=== PATIENT | male | born 1955 | race Caucasian/White ===

== ENCOUNTER 2017-12-24 12:42 | Emergency (ER) | payer OTHER ==
[~2017-12-24] VITALS: Ht 162.6 cm; Wt 84.4 kg
[~2017-12-24 12:42] MED LIST: CAMBIA50 MG PO; FOLIC ACID 1 MG PO; HUMALOG 100U100 U/ML SC; HUMALOG100 U/ML SC; IRBESARTAN300 MG PO; LEVEMIR FL300 UNITS/ SC; LOVAZA1 GM PO; METFORMIN HYD1000 M1 PO; METHOTREXATE2.5 M1 PO; NABUMETONE500 MG PO; NEXIUM 40MG40 MG PO; OXYCODONE/APAP1 TAB PO; ZOMIG5 M1 NAS
--- NOTE | 2017-12-24 16:30 | ED GI/GU/ABDOMINAL COMPLAINT ---
History of Present Illness General Chief Complaint: General Adult Stated Complaint: LAST BOWLE MOVEMENT X7DAYS AGO, PAIN LL BACK Source: patient Exam Limitations: no limitations Vital Signs & Intake/Output Vital Signs & Intake/Output Vital Signs Date Time Temp Pulse Resp B/P B/P Pulse O2 O2 Flow FiO2 Mean Ox Delivery Rate 12/24 2058 98.1 94 18 122/67 99 Room Air 12/24 1910 97 Room Air 12/24 1657 98.4 102 18 120/68 98 Room Air 12/24 1251 97.5 106 20 113/75 97 Room Air Allergies Coded Allergies: No Known Allergies (12/24/17) Reconcile Medications Diclofenac Potassium (Cambia) 50 MG POWD.PACK 1 PAC PO TIDPRN PRN MIGRAINES ( Reported) Esomeprazole (Nexium) 40 MG CAPSULE.DR 1 CAP PO DAILY ACID REFLUX (Reported) Folic Acid 1 MG TABLET 1 MG PO DAILY FOLIC ACID SUPPLEMENT (Reported) Insulin Detemir (Levemir Flexpen) 100 UNIT/1 ML INSULN.PEN 74 UNITS SC QPM INSULIN (Reported) Insulin Lispro (Humalog) 100 UNIT/1 ML VIAL 19 UNITS SC QAM DIABETES ( Reported) Insulin Lispro, Recombinant (Humalog) 100 U/ML HASEEB 22 UNITS SC BID DIABETES ( Reported) WITH LUNCH AND DINNER Irbesartan 300 MG TAB 1 TAB PO DAILY BP (Reported) METFORMIN HCL (Metformin HCl ER) 1,000 MG TAB.ER.24 1 TAB PO BID DIABETES ( Reported) METHOTREXATE SODIUM (Methotrexate) 2.5 MG TABLET 6 TAB PO Q168 PSORIATIC ARTHRITIS (Reported) TAKES ON SUNDAYS Nabumetone 500 MG TABLET 1 TAB PO QPM PAIN (Reported) Abhed-8-Ruej Ethyl Esters (Lovaza) 1 GM CAPSULE 1 CAP PO BID CHOLESTEROL ( Reported) OXYCODONE HCL/ACETAMINOPHEN (Oxycodone-Acetaminophen 10-325) 1 EACH TABLET 1 TAB PO Q4-6 PRN PRN PAIN (Reported) Zolmitriptan (Zomig) 5 MG SPRAY 1 SPRAY ARCHIE DAILY NEEDED PRN MIGRAINES ( Reported) Triage Note: PT TO ED FOR L LOWER BACK PAIN/CRAMPING X7 DAYS, WORSE TODAY. HAS NOT BAD BOWEL MOVEMENT IN 7 DAYS. TAKING TRAMADOL AND GABAPENTIN FOR HERNIATED DISCS IN BACK. TAKES STOOL SOFTENER. PT REPORTS HE WAS PASSING GAS UNTIL 1 DAY AGO - NOW NO LONGER PASSING GAS. Triage Nurses Notes Reviewed? yes Onset: Gradual Duration: week(s): Timing: recent history Quality/Severity: moderate Location: left flank HPI: 74yo male presents to ED complaining of constipation x 7 days. Has been taking colace chronically without BM. His last bowel movement was 7 days ago and reports that it was soft. Patient also reports sharp intermittent 10/10 left lower back pain with minimal improvement with ice. He is chronically on tramadol and gabapentin for his L4-L5 herniated impingment. He endorses bloating. He denies fever, chills, nightsweats, chest pain, nausea, vomiting, dysuria, hematuria, or dysphagia. He states that he has a balanced diet and denies drinking alcohol. (Jaclyn Bains) Past History Travel History Traveled to [place] past 21 day No Medical History Any Pertinent Medical History? see below for history Neurological: NONE EENT: NONE Cardiovascular: hypertension, hyperlipidemia Respiratory: NONE Gastrointestinal: NONE Hepatic: NONE Renal: NONE Musculoskeletal: HERNIATED DISCS L4-L5 Psychiatric: NONE Endocrine: diabetes Surgical History Surgical History: non-contributory Psychosocial History What is your primary language Nigerien Tobacco Use: Refused to answer Family History Hx Contributory? No (Jaclyn Bains) Review of Systems Review of Systems Constitutional: Reports: no symptoms. EENTM: Reports: no symptoms. Respiratory: Reports: no symptoms. Cardiovascular: Reports: no symptoms. GI: Reports: see HPI. Genitourinary: Reports: no symptoms. Musculoskeletal: Reports: see HPI. Skin: Reports: no symptoms. Neurological/Psychological: Reports: no symptoms. Hematologic/Endocrine: Reports: no symptoms. Immunologic/Allergic: Reports: no symptoms. All Other Systems: Reviewed and Negative (Jaclyn Bains) Physical Exam Physical Exam General Appearance: well developed/nourished, no apparent distress, alert, awake Head: atraumatic, normal appearance Eyes: Bilateral: normal appearance. Ears, Nose, Throat, Mouth: hearing grossly normal Neck: normal inspection, supple, full range of motion Respiratory: normal breath sounds, no respiratory distress, lungs clear Cardiovascular: regular rate/rhythm Gastrointestinal: normal bowel sounds, soft, non-tender, no organomegaly, mild distention Back: normal inspection, normal range of motion, no CVA tenderness Extremities: normal range of motion Neurologic/Psych: awake, alert, oriented x 3 Core Measures ACS in differential dx? No Sepsis Present: No Sepsis Focused Exam Completed? No (Leela STERN,Jaclyn Joyner) Progress Differential Diagnosis: appendicitis, bowel obstruction, colon cancer, cholecystitis, diverticulitis, gastritis, hernia, pancreatitis, peptic ulcer, PUD/GERD, pyelonephritis, SBO, testicular torsion, ureterolithiasis, urinary retention, UTI/pyelo Plan of Care: Orders Procedure Date/time Status Enema 12/24 1800 Active COMPREHENSIVE METABOLIC PANEL 12/24 1500 Complete CBC WITHOUT DIFFERENTIAL 12/24 1500 Complete Laboratory Tests 12/24/17 1540: Anion Gap 14, Estimated GFR > 60, BUN/Creatinine Ratio 21.8, Glucose 92, Calcium 9.8, Total Bilirubin 0.9, AST 11 L, ALT 17 L, Alkaline Phosphatase 75, Total Protein 7.2, Albumin 4.1, Globulin 3.1, Albumin/Globulin Ratio 1.3, CBC w Diff NO MAN DIFF REQ, RBC 5.18, MCV 88.4, MCH 29.0, MCHC 32.8 L, RDW 16.6 H, MPV 9.0, Gran % 76.1 H, Lymphocytes % 11.6 L, Monocytes % 11.6 H, Eosinophils % 0.5, Basophils % 0.2, Absolute Granulocytes 8.8 H, Absolute Lymphocytes 1.3, Absolute Monocytes 1.3 H, Absolute Eosinophils 0.1, Absolute Basophils 0 12/24/17 1500: Urine Color Cancelled, Urine Clarity Cancelled, Urine pH Cancelled, Ur Specific [place] Cancelled, Urine Protein Cancelled, Urine Ketones Cancelled, Urine Nitrite Cancelled, Urine Bilirubin Cancelled, Urine Urobilinogen Cancelled, Ur Leukocyte Esterase Cancelled, Ur Microscopic Cancelled, Urine Hemoglobin Cancelled, Urine Glucose Cancelled Patient CT scan shows 3mm kidney stone with moderate hydronephrosis. Patient also has moderate volume of stool. Patient given soapsuds enema with bowel movement following here in the emergency Department. Patient states he feels better, he has minimal flank pain at this time, he responded well to Toradol. Patient to begin magnesium citrate tomorrow or his constipation. Patient has been unable to give a urine specimen, states he urinated when he was in the waiting department and cannot go currently. Patient wishes to leave prior to giving sample, I informed him that sample Will inform us of signs of infection however patient states he will follow-up with urologist rather than wait longer in the emergency department. I discussed this patient with Dr. Hernandez who agrees with plan of care. Diagnostic Imaging: Viewed by Me: CT Scan. Discussed w/RAD: CT Scan. Radiology Impression: PATIENT: DEANNA AMAYA SR PRESENT AGE: 62 PATIENT ACCOUNT NO: [id number] : 54 LOCATION: ER ORDERING PHYSICIAN: Jaclyn STERN SERVICE DATE: 12/24/17 EXAM TYPE: CAT - CT ABD & PELVIS W IV CONTRAST EXAMINATION: CT ABDOMEN AND PELVIS WITH CONTRAST CLINICAL INFORMATION: Rule out small bowel obstruction. Constipation. No bowel movement for 7 days. Abdominal pain. COMPARISON: None TECHNIQUE: Multidetector volumetric imaging was performed of the abdomen and pelvis following IV administration of 90 mL Optiray 320 intravenous contrast. Sagittal and coronal reformatted images were obtained on the technologist's workstation. DLP: 641 mGy-cm FINDINGS: LUNG BASES: There is linear atelectasis vs. scar at the left lung base. No focal consolidation or mass. LIVER, GALLBLADDER, AND BILIARY TREE: The liver is normal in size, shape, and attenuation. No focal hepatic lesion or biliary ductal dilatation is present. The gallbladder is unremarkable with no evidence of radiopaque gallstones, gallbladder wall thickening, or obvious pericholecystic inflammatory changes. PANCREAS: The pancreas is diffusely atrophic. No mass. No peripancreatic inflammatory changes. SPLEEN: Unremarkable. ADRENAL GLANDS: No adrenal mass. KIDNEYS AND URETERS: Right kidney is normal. There is symmetric enhancement. No solid mass, hydronephrosis, or calculi seen. There is a right parapelvic cyst. There is mild to moderate hydronephrosis of the left kidney. There is an obstructing 2 to 3 mm calculus in the left proximal ureter, axial image 44/91 and coronal image 54/103. There is corresponding proximal urothelial thickening and enhancement. BLADDER: Collapsed. GASTROINTESTINAL TRACT: The stomach is collapsed. The small bowel is nondilated. There is density adjacent the cecum suggesting prior appendectomy. No right lower quadrant inflammatory changes to suggest appendicitis. There is a moderate volume of stool throughout the colon with a moderate to large volume of stool in the rectum. ABDOMINAL WALL: There are surgical tacks from a hernia mesh in the anterior abdomen. There is stranding of the subcutaneous fat of the right lower quadrant suggesting subcutaneous injections. LYMPH NODES: No abdominal, pelvic, or retroperitoneal lymphadenopathy. No inguinal or pelvic sidewall lymphadenopathy. VASCULAR: Normal caliber abdominal aorta. PELVIC VISCERA: The prostate and seminal vesicles are unremarkable. OSSEOUS STRUCTURES: Multilevel degenerative changes of the spine but no acute osseous abnormality seen. IMPRESSION: A 2-3 mm obstructing left proximal ureteral calculus results in mild to moderate hydronephrosis of the left kidney and asymmetric left perinephric stranding and edema. DICTATED BY: Jj Leonard MD DATE/TIME DICTATED:12/24/171718 BILINGUAL CUSTOMER SERVICE SPECIALIST:NEGRITA DATE/TIME TRANSCRIBED:12/24/171718 CONFIDENTIAL, DO NOT COPY WITHOUT APPROPRIATE AUTHORIZATION. <Electronically signed in Other Vendor System> SIGNED BY: Jj Leonard MD 12/24/17 6977 Initial ED EKG: none (Leela STERN,Jaclyn Joyner) Departure Departure Disposition: HOME OR SELF CARE Condition: Stable Clinical Impression Primary Impression: Constipation Qualifiers: Constipation type: unspecified constipation type Qualified Code: K59.00 - Constipation, unspecified Secondary Impressions: Hydronephrosis Qualifiers: Hydronephrosis type: with renal calculous obstruction Qualified Code: N13.2 - Hydronephrosis with renal and ureteral calculous obstruction Kidney stone Referrals: Terrence BRYANT,Joel Salazar MD,Richard (PCP/Family) Additional Instructions: Take bottle of magnesium citrate (over the counter) tomorrow morning for a bowel movement. Follow-up with the urologist as discussed. Continue your pain medication as prescribed. Also continue Colace. Monitor for signs of worsening symptoms such as fever, increasing abdominal pain, increasing back pain, painful urination, return with any of these symptoms or other concerns. Please note that there might be incidental findings in your evaluation that are unrelated to the current emergency department visit. Please notify your primary care doctor about this emergency department visit in order to obtain and review all of the testing performed so that these incidental findings can be monitored as needed. If you had an x-ray performed, please understand that some fractures may not be seen on the initial set of x-rays. If your symptoms persist you might need a repeat set of x-rays to check for such a fracture. If you had a laceration evaluated, please understand that foreign bodies such as glass or wood may not be visible to the naked eye or on plain x-rays. If the wound becomes red, swollen, increasingly more painful or if there is any drainage from the wound, please have it reevaluated by a physician for the possibility of a retained foreign body. If you're unable to follow up as outlined in the discharge instructions please return to the emergency department. Thank you for choosing the [facility] Emergency Department for your care. It was a pleasure to serve you today. Departure Forms: Customer Survey General Discharge Information (Leela STERN,Jaclyn Joyner) PA/BEVELER Co-Sign Statement Statement: ED Attending supervision documentation- [] I saw and evaluated the patient. I have also reviewed all the pertinent lab results and diagnostic results. I agree with the findings and the plan of care as documented in the PA's/BEVELER's documentation. [x] I have reviewed the ED Record and agree with the PA's/BEVELER's documentation. [] Additions or exceptions (if any) to the PAs/BEVELER's note and plan are summarized below: [] (David BRYANT,Jaron Velez)
[2017-12-24 16:37] LABS: ABSOLUTE BASOPHIL COUNT 0 /CUMM (0.0-0.2); ABSOLUTE EOSINOPHIL COUNT 0.1 /CUMM (0.0-0.7); ABSOLUTE GRANULOCYTE CT 8.8 /CUMM (1.4-6.5); ABSOLUTE LYMPH COUNT 1.3 /CUMM (1.2-3.4); ABSOLUTE MONOCYTE COUNT 1.3 /CUMM (0.10-0.60); BASOPHIL % 0.2 % (0.0-2.0); EOSINOPHIL % 0.5 % (0-5); GRANULOCYTE % 76.1 % (42.2-75.2); HEMATOCRIT 45.8 % (42-52); MEAN CORPUSCULAR HGB CONC 32.8 G/DL (33.0-37.0); MEAN CORPUSCULAR VOLUME 88.4 FL (80.0-94.0); PLATELET COUNT 170 /CUMM (130-400); RBC DISTRIBUTION WIDTH 16.6 % (11.5-14.5); RED BLOOD CELL CT 5.18 /CUMM (4.70-6.10); WHITE BLOOD CELL COUNT 11.6 /CUMM (4.8-10.8)
--- NOTE | 2017-12-24 17:35 | CT SCAN REPORT ---
EXAMINATION: CT ABDOMEN AND PELVIS WITH CONTRAST CLINICAL INFORMATION: Rule out small bowel obstruction. Constipation. No bowel movement for 7 days. Abdominal pain. COMPARISON: None TECHNIQUE: Multidetector volumetric imaging was performed of the abdomen and pelvis following IV administration of 90 mL Optiray 320 intravenous contrast. Sagittal and coronal reformatted images were obtained on the technologist's workstation. DLP: 641 mGy-cm FINDINGS: LUNG BASES: There is linear atelectasis vs. scar at the left lung base. No focal consolidation or mass. LIVER, GALLBLADDER, AND BILIARY TREE: The liver is normal in size, shape, and attenuation. No focal hepatic lesion or biliary ductal dilatation is present. The gallbladder is unremarkable with no evidence of radiopaque gallstones, gallbladder wall thickening, or obvious pericholecystic inflammatory changes. PANCREAS: The pancreas is diffusely atrophic. No mass. No peripancreatic inflammatory changes. SPLEEN: Unremarkable. ADRENAL GLANDS: No adrenal mass. KIDNEYS AND URETERS: Right kidney is normal. There is symmetric enhancement. No solid mass, hydronephrosis, or calculi seen. There is a right parapelvic cyst. There is mild to moderate hydronephrosis of the left kidney. There is an obstructing 2 to 3 mm calculus in the left proximal ureter, axial image 44/91 and coronal image 54/103. There is corresponding proximal urothelial thickening and enhancement. BLADDER: Collapsed. GASTROINTESTINAL TRACT: The stomach is collapsed. The small bowel is nondilated. There is density adjacent the cecum suggesting prior appendectomy. No right lower quadrant inflammatory changes to suggest appendicitis. There is a moderate volume of stool throughout the colon with a moderate to large volume of stool in the rectum. ABDOMINAL WALL: There are surgical tacks from a hernia mesh in the anterior abdomen. There is stranding of the subcutaneous fat of the right lower quadrant suggesting subcutaneous injections. LYMPH NODES: No abdominal, pelvic, or retroperitoneal lymphadenopathy. No inguinal or pelvic sidewall lymphadenopathy. VASCULAR: Normal caliber abdominal aorta. PELVIC VISCERA: The prostate and seminal vesicles are unremarkable. OSSEOUS STRUCTURES: Multilevel degenerative changes of the spine but no acute osseous abnormality seen. IMPRESSION: A 2-3 mm obstructing left proximal ureteral calculus results in mild to moderate hydronephrosis of the left kidney and asymmetric left perinephric stranding and edema.
[2017-12-24 20:59] VITALS: BP 122/67
== END 2017-12-24 21:05 ==
LOC: ERH 12:42
PROVIDERS: Physician Assistant Medical
DX: K59.00 Constipation, unspecified (principal); N13.30 Unspecified hydronephrosis; N20.0 Calculus of kidney
CPT/HCPCS: 74177; 96361; 96374; J1885